=== PATIENT | male | born 2000 | race Caucasian/White ===

== ENCOUNTER 2018-06-06 15:52 | Emergency (ER) | payer BC ==
[~2018-06-06] VITALS: Ht 195.6 cm; Wt 84.1 kg
[2018-06-06 15:55] VITALS: TEMP 97
[2018-06-06] MEDS ORDERED: CYMBALTA 60MG60 MG PO (16:07)
[2018-06-06] MEDS ORDERED: FLEXERIL 1010 MG/TAB PO (17:55)
[2018-06-06 18:32] VITALS: BP 121/79; PULSE 70
== END 2018-06-06 19:00 | disposition home or self-care (01) ==
LOC: COL.ER 15:52
DX: S51.811A Laceration without foreign body of right forearm, initial encounter (principal); S61.412A Laceration without foreign body of left hand, initial encounter; S61.411A Laceration without foreign body of right hand, initial encounter; S00.83XA Contusion of other part of head, initial encounter; F32.9 Major depressive disorder, single episode, unspecified; F41.9 Anxiety disorder, unspecified; F17.210 Nicotine dependence, cigarettes, uncomplicated; Z23 Encounter for immunization; V43.62XA Car passenger injured in collision with other type car in traffic accident, initial encounter
CPT/HCPCS: J3010